=== PATIENT | male | born 1990 | race Caucasian/White ===

== ENCOUNTER 2024-09-12 09:33 | Outpatient (CLI) | payer BC ==
[2024-09-12 11:23] LABS: #Basophils 0.09 10x3/uL (0.0-0.2); #Eosinophils 0.25 10x3/uL (0.0-0.5); #Monocytes 0.63 10x3/uL (0.0-1.1); #Neutrophils 4.57 10x3/uL (1.5-8.4); %Basophils 1.2 % (0.0-2.0); %Eosinophils 3.3 % (0.0-6.0); %Lymphocytes 27.1 % (18.0-47.0); %Monocytes 8.2 % (0.0-10.0); %Neutrophils 59.7 % (40.0-75.0); Hematocrit 42.8 % (38.8-50.0); Mean Corpuscular HGB CONC 32.7 g/dL (32.0-36.0); Mean Corpuscular Hemoglobin 30.2 pg (27.0-33.0); Mean Corpuscular Volume 92.2 fL (81.2-95.1); Mean Platelet Volume 9.8 fL (7.4-10.4); Platelet Count 264 10x3/uL (150-450); RBC Distribution Width 11.4 % (11.5-14.5); Red Blood Cell (RBC) Count 4.64 10x6/uL (4.32-5.72); White Blood Cell (WBC) Count 7.7 10x3/uL (3.5-10.5)
[2024-09-12 13:11] LABS: Anion Gap 15 mmol/L (10-20); BUN (Urea Nitrogen) 27 mg/dL (8.9-20.6); Calc. Creatinine Clearance 0 mL/min (70-130); Calcium 9.4 mg/dL (7.8-10.44); Carbon Dioxide 24 mmol/L (22-29); Chloride 103 mmol/L (98-107); Estimated GFR 78; Glucose 73 mg/dL (70-105); Potassium 4.6 mmol/L (3.5-5.1); Sodium 137 mmol/L (136-145)
== END 2024-09-12 09:34 | disposition home or self-care (01) ==
LOC: CSHLAB 09:33
PROVIDERS: ATTEND Surgery
DX: Z01.812 Encounter for preprocedural laboratory examination (principal); K40.90 Unilateral inguinal hernia, without obstruction or gangrene, not specified as recurrent
CPT/HCPCS: 80048; 85025

== ENCOUNTER 2024-09-16 05:45 | Day surgery (SDC) | payer BC ==
[2024-09-12 10:03] VITALS: BMI 31.1
[2024-09-16] MEDS ORDERED: Bupivacaine/Epinephrine 0.25% 30 ML VIAL ONE (06:48)
[2024-09-16] MEDS ORDERED: CEFAZOLIN 2 GM VIAL ONE (06:48)
[2024-09-16] MEDS ORDERED: fentaNYL 50 mcg/mL 1 mL Vial ONE ×4 (07:03→09:15)
[2024-09-16] MEDS ORDERED: PROPOFOL 40 ML ONE (07:04)
[2024-09-16] MEDS ORDERED: Lidocaine 1% PF 5 ML VIAL ONE (07:06)
[2024-09-16] MEDS ORDERED: Rocuronium Bromide 10 MG/ML (10ML VIAL) ONE (07:06)
[2024-09-16] MEDS ORDERED: Dexamethasone 20 MG/5 ML VIAL ONE (07:34)
[2024-09-16] MEDS ORDERED: Glycopyrrolate 0.2 MG/ML 5 ML SYRINGE ONE (07:40)
[2024-09-16] MEDS ORDERED: ePHEDrine Sulfate 50 MG/10 ML VIAL ONE (07:41)
[2024-09-16] MEDS ORDERED: Dexmedetomidine 200 MCG/2 ML VIAL ONE (07:54)
[2024-09-16] MEDS ORDERED: Ondansetron PF 4 MG/2 ML Vial ONE (08:14)
[2024-09-16] MEDS ORDERED: SUGAMMADEX SODIUM 200 MG/2 ML VIAL ONE (08:14)
[2024-09-16] MEDS ORDERED: Ketorolac Tromethamine 30 MG (1 mL) VIAL ONE (08:15)
[2024-09-16] MEDS ORDERED: HYDROcodone/Acetaminophen 5/325 mg Tablet ONE (09:32)
== END 2024-09-16 10:12 | disposition home or self-care (01) ==
LOC: CSHSDC 05:45
PROVIDERS: ATTEND Surgery
PROC: 0YUA4JZ Supplement Bilateral Inguinal Region with Synthetic Substitute, Percutaneous Endoscopic Approach (ICD-10-PCS; principal; 2024-09-16)
DX: K40.20 Bilateral inguinal hernia, without obstruction or gangrene, not specified as recurrent (principal); F32.A Depression, unspecified; Z90.89 Acquired absence of other organs; Z88.1 Allergy status to other antibiotic agents; Z79.899 Other long term (current) drug therapy
CPT/HCPCS: C1781; J1100; J1885; J2405; J2704; J3010; S2900